=== PATIENT | female | born 1990 ===

== ENCOUNTER 2017-12-09 19:36 | Emergency (ER) | payer MEDICAID, OTHER ==
[2017-12-09 19:36] VITALS: BMI 30.4
[2017-12-09] MEDS ORDERED: Lidocaine 5% Patch TD STA (20:30)
--- NOTE | 2017-12-09 21:21 | ED PDOC ---
HPI: Back Time Seen by Provider: 12/09/17 19:59 Chief Complaint (Nursing): Back Pain Chief Complaint (Provider): back tripathi History Per: Patient Onset/Duration Of Symptoms: Hrs (6), Sudden Onset, Persistent Quality Of Discomfort: Sharp Severity: Severe Exacerbating Factor(s): Movement Additional Complaint(s): While trying to get up from seated position, sudden onset sharp pain to lower midline back. Constant. Worse with movement. Seen at [facility] and had xrays. Given Percocet but no relief. No bowel or urine incontinence or retention No fever. Reports pain radiating to LEFT posterior leg with movement. PMD [place]vi Past Medical History Reviewed: Historical Data, Nursing Documentation, Vital Signs Vital Signs: Last Vital Signs Temp 98.0 F 12/09/17 19:45 Pulse 86 12/09/17 19:45 Resp 18 12/09/17 19:45 BP 112/81 12/09/17 19:45 Pulse Ox 100 12/09/17 19:45 - Medical History PMH: No Chronic Diseases - Surgical History Surgical History: No Surg Hx - Family History Family History: States: Other Other Family History: Renal stones - Social History Current smoker - smoking cessation education provided: No Alcohol: Occasional Drugs: Denies - Home Medications Home Medications: Ambulatory Orders Medication Instructions Recorded Pnv No.95/Ferrous Fum/Folic AC 1 tab PO DAILY 03/18/16 [Prenavite] Ibuprofen [Motrin] 600 mg PO Q6 PRN #0 tab 03/20/16 Cyclobenzaprine [Flexeril] 5 mg PO Q8 PRN #15 tab 12/10/17 Ketorolac Tromethamine [Toradol] 10 mg PO Q8 PRN #30 tab 12/10/17 Lidocaine 5% [Lidoderm] 1 ea TD DAILY PRN #20 patch 12/10/17 traMADol [Ultram] 50 mg PO TID PRN #15 tab 12/10/17 - Allergies Allergies/Adverse Reactions: Allergies Allergy/AdvReac Type Severity Reaction Status Date / Time No Known Allergies Allergy Verified 03/18/16 00:04 Review of Systems ROS Statement: Except As Marked, All Systems Reviewed And Found Negative (and as per HPI) Gastrointestinal: Positive for: Abdominal Pain Genitourinary Female: Positive for: Incontinence Musculoskeletal: Positive for: Back Pain Neurological: Negative for: Weakness, Numbness Physical Exam - Reviewed Nursing Documentation Reviewed: Yes Vital Signs Reviewed: Yes - Physical Exam Appears: Positive for: Uncomfortable, In Acute Distress Head Exam: Positive for: ATRAUMATIC, NORMOCEPHALIC Skin: Positive for: Warm, Dry Eye Exam: Positive for: EOMI, PERRL Gastrointestinal/Abdominal: Positive for: Soft. Negative for: Tenderness, Mass , Distended, Guarding Back: Positive for: Vertebral Tenderness (midline lower lumbar with no stepoff or crepitus, RIGHT paraspinal ttp), Other (+R SLR test causes pain radiating to LEFT leg). Negative for: L CVA Tenderness, R CVA Tenderness Extremity: Positive for: Normal ROM. Negative for: Deformity Lymphatic: Negative for: Adenopathy Neurologic/Psych: Positive for: Alert. Negative for: Motor/Sensory Deficits, Other (saddle anesthesia) - ECG O2 Sat by Pulse Oximetry: 100 - Progress ED Course And Treament: 2200 Pt still in pain. Morphine ordered. [address] ordered. EXAM: CT Lumbar Spine Without Intravenous Contrast EXAM DATE/TIME: 12/09/2017 11:11 PM CLINICAL HISTORY: 27 years old, female; Pain; Low back pain; Additional info: Severe lumbar pain R /O fracture TECHNIQUE: Axial computed tomography images of the lumbar spine without intravenous contrast. All CT scans at this facility use one or more dose reduction techniques, viz.: automated exposure control; ma/kV adjustment per patient size (including targeted exams where dose is matched to indication; i.e. head); or iterative reconstruction technique. COMPARISON: No relevant prior studies available. FINDINGS: There is no acute fracture. There is no dislocation. There is limited assessment of the intracanal contents on this modality. At L2-3 level, there is circumferential disk bulge, facet hypertrophy, and hypertrophy of the ligamenta flava, with mild central canal stenosis and mild bilateral neural foraminal stenoses. At L3-4 level, there is circumferential disk bulge, facet hypertrophy, and hypertrophy of the ligamenta flava, with mild central canal stenosis and mild bilateral neural foraminal stenoses. At L4-5 level, there is circumferential disk bulge, facet hypertrophy, and hypertrophy of the ligamenta flava, with moderate central canal stenosis and [id number] bilateral neural foraminal stenoses. At L5-S1 level, there is circumferential disk bulge, facet hypertrophy, and hypertrophy of the ligamenta flava, with mild central canal stenosis and mild bilateral neural foraminal stenoses. IMPRESSION: 1. Degenerative disease, as above. 2. No acute lumbar spine injury. Thank you for allowing us to participate in the care of your patient. Dictated and Authenticated by: Eric León MD 12/10/2017 12:10 AM Eastern Time ([place] & [place]) DW pt findings and plan of care. Medications, rest, f/u pmd/pmr. Disposition - Clinical Impression Clinical Impression: Degenerative disc disease, lumbar - Disposition Referrals: Dwight Taylor MD [Staff Provider] - Sunny Tinajero MD [Family Provider] - Disposition: Routine/Home Disposition Time: 00:36 Condition: IMPROVED Additional Instructions: CALL YOUR DOCTOR AND PHYSICAL THERAPY TOMORROW FOR FURTHER MANAGEMENT. Prescriptions: Cyclobenzaprine [Flexeril] 5 mg PO Q8 PRN #15 tab PRN Reason: muscle spasm Ketorolac Tromethamine [Toradol] 10 mg PO Q8 PRN #30 tab PRN Reason: PAIN Lidocaine 5% [Lidoderm] 1 ea TD DAILY PRN #20 patch PRN Reason: PAIN traMADol [Ultram] 50 mg PO TID PRN #15 tab PRN Reason: SEVERE PAIN ONLY Instructions: Degenerative Disc Disease (DC) Forms: [facility] ED School/Work Excuse
[2017-12-09] MEDS ORDERED: Morphine 4 MG/ML VIAL ONE (21:56)
[2017-12-09 22:09] VITALS: PULSE 63; RESP 16
[2017-12-10 03:00] VITALS: BP 112/70; TEMP 98.2; O2SAT 98
--- NOTE | 2017-12-10 10:05 | CT ---
PROCEDURE: CT Lumbar Spine without contrast HISTORY: severe lumbar pain r/o fracture COMPARISON: None. TECHNIQUE: Axial computed tomography images were obtained of the lumbar spine without the use of intravenous contrast. Coronal and sagittal reformatted images were created and reviewed. Radiation dose: Total exam DLP = 821.09 mGy-cm. This CT exam was performed using one or more of the following dose reduction techniques: Automated exposure control, adjustment of the mA and/or kV according to patient size, and/or use of iterative reconstruction technique. FINDINGS: VERTEBRAE: Normal lumbar curvature is appreciated there is no fracture or spondylolisthesis identified. No destructive bony lesion evident. Posterior elements appear intact and visualized prevertebral and paraspinal soft tissues appear diffusely unremarkable. DISCS/SPINAL CANAL/NEURAL FORAMINA: L1-2: Unremarkable. L2-3: Limited disc bulging flattens the ventral thecal sac without significant central canal stenosis resulting. L3-4: Limited disc bulging flattens the ventral thecal sac without significant central canal stenosis resulting. L4-5: A generalized disc bulge is circumferential with a small central disc herniation added combined with ligamentum flavum hypertrophy resulting in moderate central canal stenosis overall. Mild bilateral neural foraminal stenosis is appreciated. L5-S1: Limited disc bulging is appreciate without significant stenosis. PARASPINAL SOFT TISSUES: Unremarkable. OTHER FINDINGS: None. IMPRESSION: Multilevel degenerative disc bulging is appreciated during only L1-2. A small central disc herniation accompanies disc bulging at L4-5 causing a moderate central canal stenosis with ligamentum flavum hypertrophy contributing to the finding. Mild bilateral neural foraminal stenosis appreciated as well. No additional disc herniation grossly evident however MRI is more sensitive in evaluation of intervertebral disc soft tissue and can be performed if clinically warranted. No fracture or spondylolisthesis. Normal curvature identified.
== END 2017-12-10 00:45 | disposition home or self-care (01) ==
LOC: H.ER 19:36
DX: M51.36 Other intervertebral disc degeneration, lumbar region (principal)
CPT/HCPCS: 72131; 81025; 96374; 96375; 99283; J1885; J2270